=== PATIENT | female | born 1945 | race Caucasian/White ===

== ENCOUNTER → 2020-07-19 09:05 | Outpatient (CLI) | payer MEDICARE, SELFPAY ==
--- NOTE | ~2020-07-19 | CT_ITS ---
EXAMINATION: CT abdomen pelvis wo con DATE: 07/19/2020 09:19 INDICATION: Chronic kidney disease, stage IIIB. Bilateral flank pain. TECHNIQUE: Computed tomography (CT) of the abdomen and pelvis was performed without intravenous contr ast. Automated exposure control and iterative reconstruction technique were employed. The dose-length product was 593.14 mGy-cm. COMPARISON: CT abdomen and pelvis 06/14/2016 FINDINGS: The visualized portions of the lung bases demonstrate peripheral septal thickening. No pleu ral effusion. Cardiomegaly is noted. There are coronary artery calcifications. No pericardial effusio n. There are pacer wires in the radiation, right ventricle, and coronary sinus. There is an 8 mm cyst in the liver. The gallbladder, spleen, pancreas, adrenal glands are normal. The kidneys are normal i n size. There are cysts in the kidneys measuring up to 2.1 cm on the right. There are 2 stones in the right kidney measuring up to 4 mm. There is a 7 mm stone in left kidney. 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 There is a chromium plater shalonda calcified 11 mm peroneal mass in right abdomen, consistent with old fat necrosis. There are no di lated loops of bowel. The appendix is normal. There is diverticulosis of the colon without evidence o f diverticulitis. There are no pathologically enlarged lymph nodes. There is no free intraperitoneal fluid. There is thoracolumbar levoscoliosis and moderate spondylosis. IMPRESSION: 1. Bilateral nonobstructing kidney stones. 2. Peripheral septal thickening in the lungs, consistent with mild pulmonary edema and/or chronic int erstitial lung disease. 3. Cardiomegaly. Reviewed, dictated and finalized at location B. ENTER'S ASSISTANT IMPRESSION: 1. Bilateral nonobstructing kidney stones. 2. Peripheral septal thickening in the lungs, consistent with mild pulmonary ed ryann and/or chronic interstitial lung disease. 3. Cardiomegaly.
== END ==
PROVIDERS: PCP Family Medicine; Visit Provider Physician Assistant
DX: N18.32 Chronic kidney disease, stage 3b (principal); R10.9 Unspecified abdominal pain; N20.0 Calculus of kidney; R91.8 Other nonspecific abnormal finding of lung field; I51.7 Cardiomegaly
CPT/HCPCS: 74176

== ENCOUNTER → 2021-01-06 15:51 | Outpatient (CLI) | payer MEDICARE, SELFPAY ==
--- NOTE | ~2021-01-06 | MM_ITS ---
EXAMINATION: MM screening [facility] BI w [facility] HISTORY: Screening TECHNIQUE: Craniocaudal and mediolateral oblique 3-D tomosynthesis images were obtained and synthetic 2-D images were generated. CAD analysis was submitted and interpreted. COMPARISON: Comparison to multiple prior studies sequentially, with oldest reviewed study dated 01/2014. BREAST PARENCHYMAL COMPOSITION: There are scattered areas of fibroglandular density. FINDINGS: There is no evidence of suspicious mass, calcification, or architectural distortion to sugg est malignancy in either breast. There has been no suspicious interval change. IMPRESSION: 1. No mammographic evidence of malignancy. 2. Recommend routine screening mammography in one year. BI-RADS Category 1: Negative Reviewed, dictated and finalized at location A.
== END ==
PROVIDERS: PCP Family Medicine; Visit Provider Physician Assistant
DX: Z12.31 Encounter for screening mammogram for malignant neoplasm of breast (principal)
CPT/HCPCS: 77063; 77067

== ENCOUNTER → 2021-11-29 11:32 | Outpatient (CLI) | payer MEDICARE, SELFPAY ==
--- NOTE | ~2021-11-29 | US_ITS ---
EXAMINATION: US renal BI DATE: 11/29/2021 11:55 INDICATION: Stage IV chronic kidney disease. TECHNIQUE: Multiple ultrasound grayscale images of the kidneys were obtained. COMPARISON: CT dated 07/19/2020 FINDINGS: The right kidney measures 9.3 x 4.5 x 5.1 cm. The left kidney measures 10.7 x 4.4 x 5.5 cm. Bilateral mild renal cortical echogenicity with increased echogenicity consistent with chronic medical renal d isease. Couple anechoic renal cysts measuring 1.8 cm and 1.3 cm. 6 mm echogenic and shadowing stone i n the right kidney. There is no hydronephrosis in either kidney. The bladder is normal. IMPRESSION: 1. 6 mm nonobstructing right renal stone. 2. Renal cortical thinning with increased echogenicity consistent with chronic medical renal disease. Reviewed, dictated and finalized at location B.
== END ==
PROVIDERS: PCP Family Medicine; Visit Provider Internal Medicine Nephrology
DX: N18.4 Chronic kidney disease, stage 4 (severe) (principal); N20.0 Calculus of kidney
CPT/HCPCS: 76775

== ENCOUNTER 2023-10-12 10:57 | Outpatient (CLI) | payer MEDICARE, BC, SELFPAY ==
--- NOTE | ~2023-10-12 | MM_ITS ---
EXAMINATION: MM screening [facility] BI w [facility] HISTORY: Screening mammogram TECHNIQUE: Craniocaudal and mediolateral oblique 3-D tomosynthesis images were obtained and synthetic 2-D images were generated. CAD analysis was submitted and interpreted. COMPARISON: 01/06/2021 BREAST PARENCHYMAL COMPOSITION:Dense: The breasts are heterogeneously dense, which may obscure small masses. FINDINGS: More conspicuous focal density in the slightly outer right breast on CC view. No parenchyma l abnormality left breast seen. No suspicious calcification in either breast. IMPRESSION: More conspicuous focal density outer right breast on CC view. Spot compression views, and possibly u ltrasound, recommended for further evaluation. BI-RADS Category 0: Incomplete: Needs additional imaging evaluation. Reviewed, dictated and finalized at location M. IMPRESSION: More conspicuous focal density outer right breast on CC view. Spot compression views, and possibly ultrasound, recommended for further evaluation. BI-RADS Category 0: Incomplete: Needs additional imaging evaluation.
== END 2023-10-12 10:58 ==
LOC: MICIMG 10:58
PROVIDERS: PCP Physician Assistant; Visit Provider Physician Assistant
DX: Z12.31 Encounter for screening mammogram for malignant neoplasm of breast (principal); R92.8 Other abnormal and inconclusive findings on diagnostic imaging of breast
CPT/HCPCS: 77063; 77067

== ENCOUNTER 2023-11-13 08:34 | Outpatient (CLI) | payer MEDICARE, BC, SELFPAY ==
--- NOTE | ~2023-11-13 | MMUS_ITS ---
EXAMINATION: MM diagnostic [facility] RT w [facility], US breast RT limited HISTORY: Conspicuous focal density of the outer right breast on screening craniocaudal view of October 12, 2023 TECHNIQUE: Additional 3-D tomosynthesis images of the right breast were performed and synthetic 2-D i mages were generated. CAD analysis was submitted and interpreted. High resolution upper outer and low er outer quadrant right breast ultrasound was performed. COMPARISON: October 12, 2023 bilateral screening mammogram FINDINGS: MAMMOGRAPHIC FINDINGS: No suspicious mass or architectural distortion is noted. The previously reported area of conspicuous density in the outer right breast on screening craniocaudal view of October 12, 2023 is thought to be c omposite shadowing of fibroglandular stroma. ULTRASOUND: No suspicious mass or shadowing, cyst or other significant abnormalities detected in the upper outer or lower outer quadrant of the right breast. IMPRESSION: 1. No evidence of malignancy 2. Routine annual mammographic screening is recommended BI-RADS Category 1: Negative Reviewed, dictated and finalized at location A. IMPRESSION: 1. No evidence of malignancy 2. Routine annual mammographic screening is recommended BI-RADS Category 1: Negative
== END 2023-11-13 08:35 ==
LOC: MICIMG 08:35
PROVIDERS: PCP Physician Assistant; Visit Provider Physician Assistant
DX: N63.11 Unspecified lump in the right breast, upper outer quadrant (principal); N63.12 Unspecified lump in the right breast, upper inner quadrant
CPT/HCPCS: 76642; 77061; 77065; G0279